=== PATIENT | female | born 1985 | race Caucasian/White ===

== ENCOUNTER 2016-08-03 14:00 | Inpatient (IN) ==
[2016-08-05] MEDS ORDERED: CARBOPROST 250 MCG/ML INJECTION IM PRN (09:19)
[2016-08-05] MEDS ORDERED: MAG-AL + SIM ORAL LIQUID 30ml PO PRN ×2 (09:19→14:33)
[2016-08-05] MEDS ORDERED: LIDOCAINE 1% (10mg/ml) 2mL INJ PF SDV ID PRN (09:19)
[2016-08-05] MEDS ORDERED: ACETAMINOPHEN 500 MG TABLET PO PRN (09:19)
[2016-08-05] MEDS ORDERED: METHYLERGONOVINE 0.2 MG/ML INJECTION IM PRN (09:19)
[2016-08-05] MEDS ORDERED: CALCIUM CARBONATE Chewable 500mg TABLET PO PRN ×2 (09:19→14:33)
[2016-08-05] MEDS: LR 1,000 ML IV PRN ×2 (09:57→12:56)
--- NOTE | 2016-08-05 11:02 | Anesthesia Preoperative Report ---
Anesthesia Epidural/Spinal Rec - Date and Time Date: 08/05/16 Preoperative Diagnosis: 37 wk Procedure: Labor Epidural Plan: Epidural - Vital Signs Vital Signs: Temp Pulse Resp BP 98.4 F 108 H 16 120/72 08/05/16 09:39 08/05/16 09:39 08/05/16 09:39 08/05/16 09:39 /Para: P:4 - Medictaions & Allergies Inpatient Medications: Current Medications Acetaminophen (Tylenol) 500 - 1,000 mg PO Q4H PRN PRN Reason: Pain Al Hydroxide/Mg Hydroxide (Maalox Plus) 30 ml PO Q3H PRN PRN Reason: Indigestion Calcium Carbonate (Tums) 500 - 1,000 mg PO Q2H PRN PRN Reason: Indigestion Carboprost Tromethamine (Hemabate) 250 mcg IM O PRN PRN Reason: .Downtime Lactated Ringer's (Lactated Ringers) 1,000 mls @ 1,000 mls/hr IV .Q1H PRN PRN Reason: as directed Last Admin: 08/05/16 09:57 Dose: 1,000 mls/hr Lidocaine HCl (Xylocaine-Mpf 1% Vial) 0.2 mg ID O PRN PRN Reason: IV Start Methylergonovine Maleate (Methergine) 0.2 mg IM O PRN Misoprostol (Cytotec) 800 mcg GA ONCE PRN Allergies/Adverse Reactions: Allergies Allergy/AdvReac Type Severity Reaction Status Date / Time Penicillins Allergy Severe ANAPHYLACTIC Verified 08/05/16 10:27 SHOCK - Home Medications Home Medications: Home Medications Medication Instructions Recorded Confirmed Type Albuterol Sulfate [Proair Hfa] 90 mcg IH PRN #0 07/17/13 08/05/16 History Fluticasone/Salmeterol (Advair 2 puff BID #0 inhaler 07/17/13 08/05/16 History 250/50) Vitamin Tab [Bird 1 tab PO DAILY 08/05/16 08/05/16 History ] - Medical History Respiratory: Reports: Asthma - Surgical History Anesthesia Reactions: None Hx Family Anesthesia Reaction: No History of Motion Sickness: No - Social History Smoking Status: Never smoker Second Hand Exposure: No Time spent discussing smoking cessation with patient: 3 to 10 minutes Substance Use Type: does not use Alcohol Intake Frequency: does not drink Hx Chewing Tobacco Use: No - Pertinent Findings Lab Data: CBC and BMP 08/05/16 09:44 EKG Rhythm: Normal Sinus Rhythm - Physical Exam Respiratory Exam: lungs clear, bilateral breath sounds equal Cardiovascular Exam: regular rate and rhythm, no murmur - Airway Assessment Mallampati Score: II TMD: 3 Fingerbreadths Neck Extension: good Overall Assessment: no airway concerns - ASA ASA Score: 2 - Discussion Discussion: Discussed risks/options/alternatives of anesthesia and questions answered. Patient consents. Nursing pain assessment noted. Anesthesia Discussion: family member Attestation Statement: Prior to the delivery of any anesthetic medication, I examined the patient, developed the plan, obtained the patient's consent and discussed the risk and benefits of the procedure with the patient/guardian.
[2016-08-05] MEDS ORDERED: D5LR 1,000 ML IV PRN (12:36)
[2016-08-05] MEDS ORDERED: OXYTOCIN DRIP 30 UNIT/500 ML ML IV PRN (12:36)
--- NOTE | 2016-08-05 12:40 | Anesthesia Preoperative Report ---
Anesthesia Epidural/Spinal Rec - Date and Time Date: 08/05/16 Preoperative Diagnosis: g6, p5, 37+5 Procedure: Labor Epidural Plan: Epidural - Vital Signs Vital Signs: Temp Pulse Resp BP 98.4 F 108 H 16 120/72 08/05/16 09:39 08/05/16 09:39 08/05/16 09:39 08/05/16 09:39 NPO since: 29 /Para: P:4 Heart Rate: 135 - Medictaions & Allergies Inpatient Medications: Current Medications Acetaminophen (Tylenol) 500 - 1,000 mg PO Q4H PRN PRN Reason: Pain Al Hydroxide/Mg Hydroxide (Maalox Plus) 30 ml PO Q3H PRN PRN Reason: Indigestion Calcium Carbonate (Tums) 500 - 1,000 mg PO Q2H PRN PRN Reason: Indigestion Carboprost Tromethamine (Hemabate) 250 mcg IM O PRN PRN Reason: .Downtime Lactated Ringer's (Lactated Ringers) 1,000 mls @ 1,000 mls/hr IV .Q1H PRN PRN Reason: as directed Last Admin: 08/05/16 09:57 Dose: 1,000 mls/hr Lidocaine HCl (Xylocaine-Mpf 1% Vial) 0.2 mg ID O PRN PRN Reason: IV Start Methylergonovine Maleate (Methergine) 0.2 mg IM O PRN Misoprostol (Cytotec) 800 mcg [place] ONCE PRN Allergies/Adverse Reactions: Allergies Allergy/AdvReac Type Severity Reaction Status Date / Time Penicillins Allergy Severe ANAPHYLACTIC Verified 08/05/16 10:27 SHOCK - Home Medications Home Medications: Home Medications Medication Instructions Recorded Confirmed Type Albuterol Sulfate [Proair Hfa] 90 mcg IH PRN #0 07/17/13 08/05/16 History Fluticasone/Salmeterol (Advair 2 puff BID #0 inhaler 07/17/13 08/05/16 History 250/50) Vitamin Tab [Bird 1 tab PO DAILY 08/05/16 08/05/16 History ] - Medical History Respiratory: Reports: Asthma (last inhaler use this am ) Neuro/Musculoskeletal: Reports: Back Problems (back injury in ), Muscle Weakness - Surgical History Anesthesia Reactions: None Hx Family Anesthesia Reaction: No History of Motion Sickness: No - Pertinent Findings Lab Data: CBC and BMP 08/05/16 09:44 - Physical Exam Respiratory Exam: lungs clear, bilateral breath sounds equal Cardiovascular Exam: regular rate and rhythm, no murmur - Airway Assessment Mallampati Score: II TMD: 3 Fingerbreadths Neck Extension: good Overall Assessment: no airway concerns - ASA ASA Score: 2 - Discussion Discussion: Discussed risks/options/alternatives of anesthesia and questions answered. Patient consents. Nursing pain assessment noted. Attestation Statement: Prior to the delivery of any anesthetic medication, I examined the patient, developed the plan, obtained the patient's consent and discussed the risk and benefits of the procedure with the patient/guardian.
[2016-08-05] MEDS ORDERED: ONDANSETRON 4 MG/2 ML INJECTION IVP PRN (12:42)
[2016-08-05] MEDS ORDERED: ROPIVACAINE 1% 10MG/ML INJ 200 MG, SUFentanil 50 MCG in NS 100 ML EPI PRN (12:42)
[2016-08-05] MEDS ORDERED: DiphenhydrAMINE 50 MG/ML INJECTION IVP PRN (12:42)
[2016-08-05] MEDS ORDERED: NALOXONE 0.4 MG/ML INJECTION IVP PRN (12:42)
[2016-08-05] MEDS ORDERED: DiphenhydrAMINE 25 MG CAPSULE PO PRN (14:33)
[2016-08-05] MEDS ORDERED: PHENYLEPHRINE RECTAL SUPPOSITORY PR PRN (14:33)
[2016-08-05] MEDS ORDERED: SALINE FLUSH 10ml SYRINGE IVF PRN (14:33)
--- NOTE | 2016-08-05 14:39 | OB/GYN Procedure Note ---
Delivery date: 08/05/16 Procedure: Patient is a 30 year old, 6, para 4 who presented to labor and delivery at 37 weeks 5 days for active labor and contractions. Antepartum complications included mild polyhydramnios with most recent NADIA 26 one week ago and suspected large infant for gestational age. Patient had come to the office for a cervical check due to continuous irregular contractions and she was found to be dilated to 4 centimeters. She was subsequently admitted to the labor and delivery unit for labor. heart rate was reactive and reassuring. Artificial rupture of membranes was performed with return of copious clear fluid. An epidural was placed for patient's comfort and labor analgesia. She was re-checked 2 hours later but did not have any cervical change so Pitocin was started per protocol for labor augmentation. Patient progressed to complete dilation within 1 hour. No other complication noted. Patient remained in the labor room, was prepped and draped in the usual sterile fashion. The infant's head delivered spontaneously but there was great difficulty getting the anterior shoulder to delivery for 15 seconds despite careful gentle downward traction so shoulder dystocia was called. Both the Jose Guadalupe maneuver and suprapubic pressure were applied and the 's anterior shoulder easily delivered within 3 seconds. The rest of the infant's body was delivered over a first degree perineal laceration. The was placed on mother's abdomen after she had a good vigorous cry for [id number]. The cord was clamped and cut, and the placenta spontaneously delivered without difficulty. The first degree perineal laceration was repaired in the usual fashion using 2-0 chromic suture. A vaginal sweep was then performed. Hemostasis was noted. No complications. No atony. and mother are doing well at this time. Apgars 6/7/9 Weight: 8 lbs 14.4 oz Name: Christy Chau Events: Labor Augmentation, Polyhydramnios Intrapartal events: None Delivery augmentation: rupture of membranes, pitocin Route of delivery: Laceration description: Perineal - 1st Degree Estimated blood loss (mL): 400 Anesthesia type: Epidural Disposition: floor
[2016-08-05] MEDS ORDERED: OXYTOCIN DRIP 30 UNIT/500 ML ML IV SCH (14:45)
[2016-08-05] MEDS: IBUPROFEN 800 MG TABLET PO PRN (18:06)
--- NOTE | 2016-08-05 18:33 | Anesthesia Postoperative Note ---
- Date and Time Date: 08/05/16 Time: 18:32 - Status Patient Participated in Evaluation: Patient Participated in Person Vital Signs: Temp Pulse Resp BP 98.4 F 108 H 16 120/72 08/05/16 09:39 08/05/16 09:39 08/05/16 09:39 08/05/16 09:39 Respiratory Function: Airway Patent Mental Status: Alert and Oriented Pain Intensity: 0 Hydration: Taking PO Fluids (no complications with epidural) Complications During Recover: None Apparent - Follow-Up Instructions Instructions: Per Surgeon
[2016-08-05] MEDS: HYDROCODONE/APAP 5mg/325mg TABLET PO PRN ×2 (21:10→21:55)
[2016-08-06] MEDS: HYDROCODONE/APAP 5mg/325mg TABLET PO PRN ×4 (01:58→18:57)
[2016-08-06] MEDS: IBUPROFEN 800 MG TABLET PO PRN ×2 (04:56→13:46)
--- NOTE | 2016-08-06 08:55 | OB/GYN Progress Note ---
OB-PP Progress Note - General PPD1 Weeks: 37 Days: 5 Group B Streptococcal Result: Negative Blood Type: A (+) positive Rubella OB HPI: immune - Subjective Date: 08/06/16 Lochia: Minimal Voiding: voiding Nausea or Vomiting Present: No - Objective Vital Signs: Last Vital Signs Temp 97.3 F 08/06/16 06:00 Pulse 78 08/06/16 06:00 Resp 16 08/06/16 06:00 BP 103/60 08/06/16 06:00 Pulse Ox 96 08/06/16 06:00 General: alert and oriented Abdomen: non-tender, non-distended Laboratory: 08/06/16 06:09 - Assessment Assessment: SP, - Plan Plan: routine care, discharge home, continue PNV
[2016-08-06] MEDS ORDERED: DOCUSATE CALCIUM 240 MG CAPSULE PO SCH (09:00)
[2016-08-06] MEDS ORDERED: PRENATAL VITAMIN TABLET PO SCH (09:00)
--- NOTE | 2016-08-06 09:02 | Discharge Summary ---
Discharge Plan - Med Rec/Dispo Prescriptions: New Ibuprofen [Motrin] 800 mg PO Q8H PRN #30 PRN Reason: Pain Hydrocodone/APAP 5/325 [Gap 5/325] 1 - 2 tab PO Q4-6HPRN PRN #14 PRN Reason: Pain Continue Fluticasone/Salmeterol (Advair 250/50) 2 puff BID #0 inhaler Albuterol Sulfate [Proair Hfa] 90 mcg IH PRN #0 Vitamin Tab [Bird ] 1 tab PO DAILY - Disposition 01 Discharged Home, Self-Care
== END 2016-08-06 19:12 | disposition home or self-care (01) | DRG 775 ==
LOC: MC 08-05 09:08
PROVIDERS: ADMIT Obstetrics & Gynecology; ATTEND Obstetrics & Gynecology